=== PATIENT | female | born 1975 | race Two or more races ===

== ENCOUNTER → 2024-06-28 | Outpatient (CLI) | payer MEDICAID, SELFPAY ==
--- NOTE | 2024-06-28 12:20 | XR_ITS ---
Examination: Bone densitometry Date and time of exam:June 28, 2024 1245 hours INDICATIONS: Uterine ablation age 38 Technique: Lumbar spine and hip total bone mineralization values of an calculated. Peak reference and age match control results have been displayed. Findings: Lumbar spine total bone mineralization is1.174 gm/cm2. This is 1.2 standard deviations above peak reference. This is 1.9 standard deviations above age-matched controls. Hip total bone mineralization is 1.113 gm/cm2 This is 1.1 standard deviations above peak reference. This is 1.6 standard deviations above age-matched controls Impression: There is normal mineralization based on lumbar spine measurements. There is normal mineralization based on hip measurements
== END | disposition home or self-care (01) ==
PROVIDERS: PCP Nurse Practitioner Family; Referring Provider Nurse Practitioner Family; Visit Provider Nurse Practitioner Family
DX: M85.80 Other specified disorders of bone density and structure, unspecified site (principal)
CPT/HCPCS: 77080

== ENCOUNTER → 2024-08-03 | Outpatient (CLI) | payer MEDICAID, SELFPAY | END | disposition home or self-care (01) | LOC: SMRI 07:33 | PROVIDERS: PCP Nurse Practitioner Family; Referring Provider Otolaryngology; Visit Provider Otolaryngology | DX: Z53.8 Procedure and treatment not carried out for other reasons (principal) ==

== ENCOUNTER → 2024-09-04 | Outpatient (CLI) | payer MEDICAID, SELFPAY ==
--- NOTE | 2024-09-04 16:12 | XR_ITS ---
Examination: MRI right foot, without contrast Date and time of exam: September 04, 2024 1620 hours INDICATIONS: Numbness in the toes on the plantar surface of the second toe and pain beginning 3 years ago Technique: Multiple axial sagittal and coronal images of the right weight have been obtained with the Siemens high-resolution 1.5 Teresa MRI scanner. Images obtained include T2-weighted fat-suppressed sagittal sections, TR 3500, TE 46, T2 weighted coronal fat suppressed images, TR 3050, TE 84, T2-weighted transverse fat suppressed images, TR 3260, TE 63, proton density transverse images, TR 4720 TE 46, and T1 weighted coronal images, TR 560, TE 13. Findings: No occult fracture Or definition of the cortex distal second metatarsal Extensive abnormal soft tissue signal surrounding the distal second metatarsal especially the second metatarsal head and neck Marrow edema in the second metatarsal neck No foreign body IMPRESSION: Extensive abnormal soft tissue surrounding the distal second metatarsal with early cortical erosion distal second metatarsal Differential would include soft tissue tumor at this site as well as osteomyelitis This patient should return for MRI foot images post intravenous contrast
== END | disposition home or self-care (01) ==
LOC: SMRI 16:01
PROVIDERS: PCP Nurse Practitioner Family; Referring Provider Student in an Organized Health Care Education/Training Program; Visit Provider Student in an Organized Health Care Education/Training Program
DX: M77.50 Other enthesopathy of unspecified foot and ankle (principal)
CPT/HCPCS: 73718

== ENCOUNTER → 2024-10-17 | Outpatient (CLI) | payer MEDICAID, SELFPAY ==
--- NOTE | 2024-10-17 17:11 | XR_ITS ---
Examination: Foot, right, 3 views Technique: AP, oblique, lateral views foot, 3 views Date and time of exam: October 17, 2024 1715 hours INDICATIONS: Right foot pain beginning 2 years ago. FINDINGS: Chronic mild subluxation at the second metatarsophalangeal joint Moderate osteoarthritis first metatarsophalangeal joint Minimal bunion deformity No acute fracture 6 mm plantar bony calcaneal spur Mild osteoarthritis talonavicular joint IMPRESSION: Osteoarthritis as above Mild chronic subluxation at the second metatarsophalangeal joint
== END | disposition home or self-care (01) ==
PROVIDERS: PCP Nurse Practitioner Family; Referring Provider Student in an Organized Health Care Education/Training Program; Visit Provider Student in an Organized Health Care Education/Training Program
DX: M24.474 Recurrent dislocation, right foot (principal)
CPT/HCPCS: 73630

== ENCOUNTER 2025-03-25 06:55 | Inpatient (IN) | payer MEDICAID, SELFPAY ==
[2025-03-25 06:56] VITALS: BP 102/71; PULSE 114; RESP 18; TEMP 37.9; O2SAT 98; BMI 27.2
--- NOTE | 2025-03-25 07:09 | XR_ITS ---
Examination: CT abdomen and pelvis without contrast. Coronal 3-D reconstructions. Sagittal 2-D reconstructions. Date and time of exam:March 25, 2025, 1006 hours COMPARISON: May 07, 2016 INDICATIONS: Left-sided abdominal pain with nausea beginning 2 days ago CTDI: vol (mGy): 6.55 DLP: (mGycm): 355 Technique: Axial images of the abdomen have been obtained, 3 mm slice thickness Intravenous contrast material has not been administered. Low dose protocols were performed. One or more of the following dose reduction techniques were used; automated exposure control, adjustment of the mA and/or KV according to patient size, use of iterative reconstruction technique. Findings: Significant adenopathy adjacent to the descending thoracic aorta, the largest mass at least 25 mm No visualized liver or splenic lesion No gallstones No pancreatic mass Minimal nodular thickening left adrenal gland Suspicious for 12 mm left lateral periaortic lymph node No hydronephrosis No bowel obstruction Normal appendix Colonic diverticulosis Acute diverticulitis descending colon distally, no peridiverticular abscess Urinary bladder wall thickening up to 10 mm IMPRESSION: Significant adenopathy adjacent to the descending thoracic aorta, recommend CT chest abdomen pelvis post intravenous contrast follow-up Suspicious for 12 mm left lateral periaortic lymph node Acute diverticulitis descending colon distally, no peridiverticular abscess Urinary bladder wall thickening
--- NOTE | 2025-03-25 07:11 | EDNOTE_ITS ---
ED Abdominal Pain RME/HPI General Chief Complaint: Abdominal Pain Stated complaint: L SIDED ABD PAIN Time seen by provider: 03/25/25 07:00 Arrival date/time: 03/25/25 06:55 49-year-old female with no known medical history presents to the emergency room with a chief complaint of left lower quadrant abdominal pain x 2 days Source: patient Mode of arrival: ambulatory Limitations: no limitations Related Data Home Medications ?Medication ?Instructions ?Recorded ?Confirmed benzonatate 100 mg capsule 100 mg PO QDAY 04/12/24 cetirizine 10 mg tablet 10 mg PO QDAY 04/12/2404/12 spironolactone 50 mg tablet 50 mg PO QDAY 04/12/24 Allergies Allergy/AdvReac Type Severity Reaction Status Date / Time Influenza Virus Vaccines Allergy Intermediate Rash Verified 03/25/25 07:02 Review of Systems Review of Systems Systems Reviewed: All systems reviewed, normal except as documented Constitutional Constitutional: Reports system reviewed and no additional complaints, except as documented, Denies fatigue, Denies fever(s), Denies headache(s) and Denies weakness Eyes Eyes: Reports system reviewed and no additional complaints, except as docu mented, Denies blurry vision and Denies change in vision ENT Ears, Nose, Mouth, and Throat: Reports system reviewed and no additional complaints, except as documented, Denies otalgia, Denies headache(s), Denies nasal congestion, Denies throat swelling and Denies vertigo Cardiovascular Cardiovascular: Reports system reviewed and no additional complaints, except as documented, Denies chest pain, Denies dyspnea and Denies dyspnea on exertion Respiratory Respiratory: Reports system reviewed and no additional complaints, except as documented, Denies chest congestion, Denies cough, Denies dyspnea, Denies dyspnea on exertion and Denies wheezing Gastrointestinal Gastrointestinal: Reports system reviewed and no additional complaints, except as documented, Reports abdominal pain, Reports cramping, Reports nausea and Denies vomiting Genitourinary Genitourinary: Reports system reviewed and no additional complaints, except as documented Musculoskeletal Musculoskeletal: Reports system reviewed and no additional complaints, except as documented and Denies back pain Integumentary/Breasts Skin/Breast: Reports system reviewed and no additional complaints, except as documented and Denies wounds Neurologic Neurologic: Reports system reviewed and no additional complaints, except as documented, Denies confusion, Denies headache(s), Denies lack of coordination, Denies vertigo and Denies weakness Psychiatric Psychiatric: Reports system reviewed and no additional complaints, except as documented, Denies anxiety, Denies confusion, Denies depression, Denies pa ranoia, Denies suicidal ideation and Denies tactile hallucinations Endocrine Endocrine: Reports system reviewed and no additional complaints, except as documented and Denies fatigue Hematologic/Lymphatic Hematologic/Lymphatic: Reports system reviewed and no additional complaints, except as documented and Denies lymphadenopathy Allergic/Immunologic Allergic/Immunologic: Reports system reviewed and no additional complaints, except as documented, Denies throat swelling, Denies urticaria and Denies wheezing Past Medical History Past Medical History NEUROLOGIC: Negative Neurological Disorders or Seizures CARDIAC: Negative Cardiac Disorders or Congestive Heart Failure RESPIRATORY: Positive Tuberculosis (LATENT); Negative Chronic Obstructive Pulmonary Disease (COPD) GASTROINTESTINAL: Negative Gastrointestinal Disorders, Hepatitis or Colorectal Cancer GENITOURINARY: Negative Genitourinary Disorders, Renal Disease or Prostate Cancer REPRODUCTIVE: Positive Previous Pregnancies (); Negative Breast Cancer, Endometriosis, Genital Herpes, Gonorrhea, Pelvic Inflammatory Disease or Syphilis MUSCULOSKELETAL: Negative Musculoskeletal Disorders or Bone Cancer ENDOCRINE: Negative Endocrine Disorders, Diabetes Mellitus Type 1 or Diabetes Mellitus Type 2 HEMATOLOGIC: Negative Blood Disorders OTHER HISTORY: Negative Hospitalization, Autoimmune Disease, Down Syndrome, Developmental Delay, Shingles, Falls, Blood Transfusions, Anesthesia Reactions, Organ Transplant, Chemotherapy, Radiation Therapy, Hyperbaric Therapy, MRSA, VRSA, Vancomycin-Resistant Enterococci, Human Immunodeficiency Virus (HIV), Chicken Pox, Measles, Mumps, Rubella (Danish Measles), Pertussis, Clostridium Difficile, Cancer, Breast Cancer, Cervical Cancer, Colorectal Cancer, Lung Cancer, Ovarian Cancer or Prostate Cancer Family History FAMILY HISTORY: Negative Family Cardiac Disorders Surgical History SURGICAL: Positive Tubal Ligation and Section (X2); Negative Ear Surgery or Organ Transplant Social History SMOKING STATUS: Never smoker ED Exam General Limitations: Present no limitations General appearance: Present alert and in no apparent distress Head Head exam: Present atraumatic Eye Eye exam: Present normal appearance, PERRL and EOMI ENT ENT exam: Present normal exam, normal oropharynx and mucous membranes moist Neck Neck exam: Present normal inspection, full ROM and trachea midline Chest Chest inspection: Present normal inspection and symmetric chest wall rise Respiratory Respiratory exam: Present normal lung sounds bilaterally Cardiovascular Cardiovascular exam: Present regular rate, normal rhythm and normal heart sounds Abdominal Exam Abdominal exam: Present soft, tenderness and normal bowel sounds; Absent distention, guarding, rebound, rigidity, Rubi's sign or tenderness at McBurney's Point Abdominal tenderness: Present LLQ and mild Extremities Exam Extremities exam: Present normal inspection and full ROM Back Exam Back exam: Present normal inspection and full ROM Neurological Exam Neurological exam: Present alert, oriented X3 and CN II-XII intact Psychiatric Psychiatric exam: Present normal affect and normal mood Skin Skin exam: Present warm, dry, intact and normal color Course Quality Measures none Orders Category Date Time Status Admit to Inpatient Status Routine Admission 03/25/25 11:53 Active Patient Condition Routine Admission 03/25/25 11:53 Ordered Ambulate in Room PRN Care 03/25/25 12:05 Active COVID-19 Screening Questionnaire NOW Care 03/25/25 11:54 Active Decision to Admit X1 Care 03/25/25 11:53 Active Insert IV STAT Care 03/25/25 11:53 Active NPO NOW Care 03/25/25 11:54 Active Notify provider NEEDED Care 03/25/25 11:53 Active SCD [Sequential Compression Device] QSHIFT Care 03/25/25 12:02 Active Safe to Ambulate NOW Care 03/25/25 12:15 Ordered Consult to Gastroenterology Stat Cons 03/25/25 11:[address] abdomen pelvis wo con Stat Exams 03/25/25 07:09 Completed Basic Metabolic Panel AM DRAW Lab 03/26/25 05:00 Ordered Basic Metabolic Panel AM DRAW Lab 03/27/25 05:00 Ordered Basic Metabolic Panel AM DRAW Lab 03/28/25 05:00 Ordered Blood Culture (Lab) Routine Lab 03/25/25 11:58 Ordered CBC AM DRAW Lab 03/26/25 05:00 Ordered CBC AM DRAW Lab 03/27/25 05:00 Ordered CBC AM DRAW Lab 03/28/25 05:00 Ordered CBC Stat Lab 03/25/25 07:15 Completed CMP [Comprehensive Metabolic Panel] Stat Lab 03/25/25 07:15 Completed HCG Qualitative,Urine Stat Lab 03/25/25 07:31 Completed Lipase Stat Lab 03/25/25 07:15 Completed Lipid Panel AM DRAW Lab 03/26/25 05:00 Ordered Magnesium AM DRAW Lab 03/26/25 05:00 Ordered Phosphorous AM DRAW Lab 03/26/25 05:00 Ordered Thyroid Stimulating Hormone AM DRAW Lab 03/26/25 05:00 Ordered UA [Urinalysis] Stat Lab 03/25/25 07:31 Completed Urine Culture Stat Lab 03/25/25 07:31 Received Acetaminophen Tab [Tylenol ES Tab] Med 03/25/25 12:04 Active 1,000 mg PO Q6H PRN Acetaminophen Tab [Tylenol Tab] Med 03/25/25 11:52 Discontinued 650 mg PO Q6H PRN CIPROFLOXACIN/D5w 400 MG IVPB [Cipro Ivpb] Med 03/25/25 12:00 Active 400 mg in 200 ml IV BID Enoxaparin [Lovenox] Med 03/25/25 12:00 Discontinued 40 mg SC QDAY HYDROcodone*/APAP 5/325 [[place] 5/325] Med 03/25/25 11:52 Active 1 tab PO Q6HR PRN Hyoscyamine Sulf [Levsin] Med 03/25/25 14:00 Active 0.25 mg PO Q4HR Lactobacillus Rhamnosus [Culturelle (Lactobacillus Gg)] Med 03/25/25 12:15 Active 1 cap PO BID Morphine* Inj Med 03/25/25 12:03 Active 2 mg IVP Q4HR PRN Ondansetron Inj [Zofran Inj] Med 03/25/25 11:52 Active 4 mg IVP Q6H PRN Pantoprazole Inj [Protonix Inj] Med 03/25/25 12:15 Active 40 mg IVP QDAY metroNIDAZOLE/NS 500 MG IVPB [Flagyl 500 mg IV] Med 03/25/25 11:54 Active 500 mg in 100 ml IV Q8HR Late Tray Request Routine Oth 03/25/25 12:04 Active Vital Signs Vital signs: Vital Signs Temperature 100.2 F 03/25/25 06:56 Pulse Rate 114 H 03/25/25 06:56 Respiratory Rate 18 03/25/25 06:56 Blood Pressure 102/71 03/25/25 06:56 Pulse Oximetry (%) 98 03/25/25 06:56 Oxygen Delivery Method Room Air 03/25/25 06:56 Abdominal Pain MDM MDM Narrative MDM Narrative:: 49-year-old female with no known medical history presents to the emergency room with a chief complaint of left lower quadrant abdominal pain x 2 days Patient is hemodynamically stable and in no apparent distress. Patient is not tachycardic not tachypneic and is afebrile Physical examination shows left lower quadrant abdominal pain and tenderness with palpation. The patient states she has a history of diverticulitis in the past and her symptoms feel similar to the same episode. A CT of the abdomen and pelvis was completed and shows significant acute diverticulitis in the descending colon. There is also some significant adenopathy adjacent to the descending thoracic aorta. Dr. Bell the data quality consultant on-call was consulted and his recommendation was to admit the patient for IV antibiotics. All of his orders were appreciated and placed. The hospitalist team was consulted and the patient will be admitted. Patient data External records reviewed:: [facility] previous records Clinical information provided by:: patient Social determinants that could affect healthcare access:: none Patient has the following chronic illnesses:: No chronic illness How is presenting disease/condition affected by chronic disease/condition?: no chronic disease Evaluation data The following diagnostics were reviewed and interpreted by me:: lab results and radiology exam(s) Lab and/or radiology exams considered but not ordered:: Labs and radiology exams considered and ordered Interpretation Summary: CT abdomen and pelvis-Findings: Significant adenopathy adjacent to the descending thoracic aorta, the largest mass at least 25 mm No visualized liver or splenic lesion No gallstones No pancreatic mass Minimal nodular thickening left adrenal gland Suspicious for 12 mm left lateral periaortic lymph node No hydronephrosis No bowel obstruction Normal appendix Colonic diverticulosis Acute diverticulitis descending colon distally, no peridiverticular abscess Urinary bladder wall thickening up to 10 mm IMPRESSION: Significant adenopathy adjacent to the descending thoracic aorta, recommend CT chest abdomen pelvis post intravenous contrast follow-up Suspicious for 12 mm left lateral periaortic lymph node Acute diverticulitis descending colon distally, no peridiverticular abscess Urinary bladder wall thickening Medications / Prescriptions Medications or Prescriptions considered but not ordered:: No medication given Medication administrations:: Medication Administration History Acetaminophen (Acetaminophen 500 Mg Tablet) 1,000 mg PO Q6H PRN PRN Reason: fever >99.9 Stop: 04/24/25 11:51 Hydrocodone Bitart/Acetaminophen (Hydrocodone/Apap 5/325 Tablet) 1 tab PO Q6HR PRN PRN Reason: PAIN SCALE 4-6 (Moderate Stop: 03/30/25 11:51 Hyoscyamine (Hyoscyamine Sulf 0.125 Mg Tab.Subl) 0.25 mg PO Q4HR [place] Stop: 04/24/25 13:59 Metronidazole (Flagyl 500 Mg Iv) 500 mg in 100 mls @ 200 mls/hr IV Q8HR [facility] [place] Stop: 04/01/25 11:53 Ciprofloxacin/Dextrose (Cipro Ivpb) 400 mg in 200 mls @ 200 mls/hr IV BID [facility] [place] Stop: 04/01/25 11:59 Lactobacillus Rhamnosus (Lactobacillus Rhamnosus 1 Cap) 1 cap PO BID [facility] [place] Stop: 04/24/25 12:14 Morphine Sulfate (Morphine Sulf Inj 4 Mg/Ml Vial) 2 mg IVP Q4HR PRN PRN Reason: pain 7-10 Stop: 03/30/25 12:02 Ondansetron HCl (Ondansetron Inj 2 Mg/Ml Inj 2 Ml) 4 mg IVP Q6H PRN; Protocol PRN Reason: NAUSEA OR VOMITING Stop: 04/24/25 11:51 Pantoprazole Sodium (Pantoprazole Inj 40 Mg Vial) 40 mg IVP QDAY [facility] [place] Stop: 04/24/25 12:14 Discontinued Medications Acetaminophen (Acetaminophen 325 Mg Tablet) 650 mg PO Q6H PRN PRN Reason: PAIN OR FEVER > 100.4 Stop: 04/24/25 11:51 Enoxaparin Sodium (Enoxaparin Sod Inj 40 Mg/0.4 Ml Syringe) 40 mg SC QDAY [facility] [place] Stop: 04/08/25 11:59 No medication given Consultations Consultation(s) initiated? (list below): Yes Consultation #1 (Physician, Specialty, Details): Dr. Bell, data quality consultant on-call Time: 12:19 Diagnosis Differential diagnosis abdominal pain: abdominal pain, constipation, diverticulitis and gastroenteritis Most likely diagnosis given after review of the tests above:: Diverticulitis Admission Indicated Admission indicated?: indicated Admission Request Was there a request for admission?: Yes Admission Attestation Admission request attestation: Discussed case with [Dr. Bell] from Hospitalist service regarding admission. Discussed patients ED course, exam findings, labs, and radiology results. The H ospitalist [agrees,declines] to accept the patient for admission. Disposition Plan Disposition Plan: Discharge Discharge Attestation Discharge Attestation: The patient and all family members were given an opportunity to ask questions and understood the discharge instructions. Discharge instructions specifically effects, indications for sooner follow up or return to the emergency department, and the expected course of current diagnosis. Patient condition: Stable Discharge Plan Plan Patient Disposition: Admit Acute Care w/in Hospital Discharge Disposition comment: Stable Prescriptions/Referrals Prescriptions/Med Rec: No Action cetirizine 10 mg tablet 10 mg PO QDAY benzonatate 100 mg capsule 100 mg PO QDAY Patient Comments: TAKE 1 CAPSULE BY MOUTH THREE TIMES A DAY NEEDED FOR COUGH spironolactone 50 mg tablet 50 mg PO QDAY Patient Comments: TAKE 1 TABLET BY MOUTH FOR THE LAST AND FIRST WEEK OF THE MONTH DIRECTED Referrals: Nile BELL)Edson MD [Primary Care Provider] - In 1 week Problem List Clinical Impression: Diverticulitis Patient/Caregiver Discharge Instructions Print Language: Libyan Stand Alone Forms: Danae Award Info., Patient Portal Info Letter
[2025-03-25 07:43] LABS: Basophils # (Auto) 0.1 Thou/mm3 (0.0-0.2); Basophils % (Auto) 0 % (0-2.5); Eosinophils # (Auto) 0.1 Thou/mm3 (0.0-0.5); Eosinophils % (Auto) 1 % (0-10); Hematocrit 41.4 % (36.0-46.0); Hemoglobin 14.1 g/dL (12.0-16.0); Immature Granulocytes Auto 0.05 Thou/mm3 (0.00-0.00); Lymphocytes # (Auto) 1.0 Thou/mm3 (1.0-4.8); Lymphocytes % (Auto) 8 % (10-50); Mean Corpuscular HGB Conc 34.1 g/dl (31.0-37.0); Mean Corpuscular Hemoglobin 29.7 pg (25.0-35.0); Mean Corpuscular Volume 87 fL (80-100); Monocytes # (Auto) 0.8 Thou/mm3 (0.0-0.8); Monocytes % (Auto) 7 % (0-12); Neutrophils # (Auto) 10.4 Thou/mm3 (1.8-7.7); Neutrophils % (Auto) 84 % (37-80); Nucleated Red Blood Cell # 0.00 Thou/mm3 (0.00-0.00); Nucleated Red Blood Cell % 0 /100 WBC (0); Platelet Count 263 Thou/mm3 (140-440); RDW Standard Deviation 41.2 fL (36.4-46.3); Red Blood Count 4.75 Miln/mm3 (4.00-5.20); White Blood Count 12.4 Thou/mm3 (3.6-11.0)
[2025-03-25 07:51] LABS: Alanine Aminotransferase 37 U/L (10-49); Albumin, Serum 4.2 gm/dL (3.5-5.0); Albumin/Globulin Ratio 1.4 (1.2-2.2); Alkaline Phosphatase 74 U/L (46-116); Anion Gap 12 (7-16); Aspartate Amino Transferase 32 U/L (0-34); BUN/Creatinine Ratio 13 Ratio (12-20); Bilirubin,Total 0.8 mg/dL (0.3-1.2); Blood Urea Nitrogen 9 mg/dL (9-23); Calcium 9.6 mg/dL (8.3-10.6); Calcium (Corrected) 9.6 mg/dL (8.5-10.1); Carbon Dioxide 27.5 mMol/L (20.0-31.0); Chloride 102 mMol/L (98-107); Creatinine (Component) 0.7 mg/dL (0.6-1.3); Estimated Creatinine Clearance 75.7 mL/min (>60); Globulin 3.0 gm/dL (2.3-3.5); Glucose 159 mg/dL (74-106); Lipase 29 U/L (12-53); Osmolality,Calculated 282 (275-295); Potassium 3.5 mMol/L (3.4-5.1); Sodium 141 mMol/L (136-145); Total Protein 7.2 gm/dL (5.7-8.2); eGFR > 60 See Note
[2025-03-25 08:18] LABS: Collection Type, Urine Clean Catch
[2025-03-25 08:28] LABS: HCG Qualitative,Urine Negative
[2025-03-25 08:31] LABS: Bilirubin,Urine Negative (Negative); Blood,Urine Trace (Negative); Clarity,Urine Clear (Clear/Hazy); Color,Urine Yellow (Lt Yel-Yel); Glucose, Urine Negative (Negative); Ketones,Urine Negative (Negative); Leukocyte Esterase,Urine Positive (Negative); Nitrite,Urine Negative (Negative); PH,Urine 6.0 (5.0-7.0); Protein,Urine 1+ (Neg - Trace); RBC,Urine 4 /hpf (0-3); Specific Gravity,Urine 1.027 (1.001-1.035); Squamous Epithelial Cell,Urine 6 /hpf (0-5); Urobilinogen,Urine Negative mg/dL (0.0-1.0); WBC,Urine 9 /hpf (0-5)
[2025-03-25 08:58] VITALS: BP 104/61; PULSE 81; RESP 18; O2SAT 98
[2025-03-25 10:48] VITALS: BP 101/61; PULSE 75; RESP 19; TEMP 36.9; O2SAT 98
--- NOTE | 2025-03-25 12:13 | ESHP_ITS ---
<Statement entered by Jose Alfredo Pereira MD - 04/07/25 09:06> I reviewed above note and agree with findings and plans. I have also personally examined the patient with medicine team and went over assessment and plan with medical team including technology internship and resident physician. <Statement entered by Gordon Katz MD - 03/25/25 19:48> Jana Marin is a 49-year-old female with no previous past medical history who presents with acute onset left lower quadrant abdominal pain. States pain started day prior to admission, was acute in onset, not associated with eating. No associated fevers, chills, sweats, diarrhea, constipation, hematochezia, melena. States that this has happened many years ago. In ED, tachycardic at 114 but resolved and otherwise vital signs stable. CBC showed slight leukocytosis 12.4, CHEM panel largely unremarkable. CT A/P showed acute diverticulitis of descending colon but also showed significant periaortic adenopathy with suspicious 12 mm left lateral periaortic lymph node. She was started on ciprofloxacin/Flagyl, GI consulted, and will follow-up with blood cultures. ----- Note reviewed and agree with care plan as documented. Please refer to the note below for further details. Plan discussed with attending physician Dr. Kelli Katz MD PGY-2 Internal Medicine Documentation for date of: 03/25/25 HPI History of Present Illness History of present illness: HPI: 49-year-old female with no past medical history presented to the ED on 03/25/2025 after a day of intense left lower quadrant pain. It is not radiating. The patient took some ibuprofen which helped a little but she was unable to turn over in bed prompting her to visit the emergency room. She was admitted by the hospital team for acute diverticulitis. ED course: * Vitals: On arrival blood pressure 102/71, pulse 114, respiratory rate 18, temp 100.2, O2 sat 98% on room air. * Labs: Significant for WBC 12.4. Sodium 141, potassium 3.5, chloride 102, carbon dioxide 27.5, anion gap 12, BUN 9, creatinine 0.7. Urinalysis was positive for 1+ protein, 4 RBC, 9 WBC, negative for bacteria * Imaging: CT abdomen pelvis showed significant adenopathy adjacent to the descending thoracic aorta. Suspicion for 12 mm left lateral periaortic lymph node. There was acute diverticulitis in the descending colon distally, no peridiverticular abscess. There was urinary bladder wall thickening History: * Past medical history: No significant past medical history * Surgical history: Tubal ligation, 2 C-sections * Family history: No significant family history * Social history: Denies alcohol tobacco or illicit drug use. * Allergies: Influenza virus vaccine * Home medications: Multivitamin, Advil as needed for pain Review of Systems Review of Systems Narrative Review of Systems: Review of Systems: * General: Admits to having chills the night before presentation. * HEENT: Denies headache, congestion, or sore throat. * Cardiac: Denies chest pain or palpitations. * Pulmonary: Denies shortness of breath or cough. * GI: 1 day history of severe left lower quadrant pain. Admits to nausea, denies vomiting, denies diarrhea. * : Denies dysuria, hematuria, frequency, or urgency. * MSK: Denies pain in the extremities, joints, or myalgias. * Neuro: Denies weakness, numbness, vision changes, or speech difficulty. Exam Vital Signs Temp Pulse Resp BP Pulse Ox O2 Del Method 98.5 F 75 19 101/61 98 Room Air 03/25/25 10:48 03/25/25 10:48 03/25/25 10:48 03/25/25 10:48 03/25/25 10:48 03/25/25 10:48 Narrative Exam General: Uncomfortable, abdominal guarding. Otherwise healthy appearing woman. Neurologic: GCS 15. Alert and oriented x3, no gross neurological deficit, and patient able to move all 4 extremities. HEENT: Normocephalic, atraumatic, mucous membranes moist. Pupils reactive to light. Heart: Regular rate and rhythm, normal S1 and S2, no murmurs. Lungs: Clear to auscultation bilaterally with no wheezing or crackles. Abdomen: Tender to superficial palpation over the left lower quadrant. Extremities: No edema. 2+ radial and dorsalis pedis pulses bilaterally. Skin: Warm. Dry. No rash or ecchymoses. Results: Labs 03/25/25 07:15 03/25/25 07:15 Labs: Short CBC 03/25/25 Range/Units 07:15 WBC 12.4 H (3.6-11.0) Thou/mm3 Hgb 14.1 (12.0-16.0) g/dL Hct 41.4 (36.0-46.0) % Plt Count 263 (140-440) Thou/mm3 BMP 03/25/25 07:15 Sodium 141 Potassium 3.5 Chloride 102 Carbon Dioxide 27.5 BUN 9 Creatinine 0.7 Glucose 159 H Calcium 9.6 Liver Function 03/25/25 Range/Units 07:15 Total Bilirubin 0.8 (0.3-1.2) mg/dL AST 32 (0-34) U/L ALT 37 (10-49) U/L Alkaline Phosphatase 74 (46-116) U/L Albumin 4.2 (3.5-5.0) gm/dL Urine 03/25/25 Range/Units 07:31 Urine Color Yellow (Lt Yel-Yel) Urine Clarity Clear (Clear/Hazy) Urine pH 6.0 (5.0-7.0) Ur Specific [place] 1.027 (1.001-1.035) Urine Protein 1+ A (Neg - Trace) Urine Glucose (UA) Negative (Negative) Quality Measures Quality Measures none Medications Home Medications and Allergies Allergies Allergy/AdvReac Type Severity Reaction Status Date / Time Influenza Virus Vaccines Allergy Intermediate Rash Verified 03/25/25 07:02 Visit Medications Acetaminophen (Acetaminophen 500 Mg Tablet) 1,000 mg PO Q6H PRN PRN Reason: fever >99.9 Stop: 04/24/25 11:51 Hydrocodone Bitart/Acetaminophen (Hydrocodone/Apap 5/325 Tablet) 1 tab PO Q6HR PRN PRN Reason: PAIN SCALE 4-6 (Moderate Stop: 03/30/25 11:51 Hyoscyamine (Hyoscyamine Sulf 0.125 Mg Tab.Subl) 0.25 mg PO Q4HR [facility] Stop: 04/24/25 13:59 Metronidazole (Flagyl 500 Mg Iv) 500 mg in 100 mls @ 200 mls/hr IV Q8HR [facility] Stop: 04/01/25 11:53 Ciprofloxacin/Dextrose (Cipro Ivpb) 400 mg in 200 mls @ 200 mls/hr IV BID [facility] Stop: 04/01/25 11:59 Lactobacillus Rhamnosus (Lactobacillus Rhamnosus 1 Cap) 1 cap PO BID [facility] Stop: 04/24/25 12:14 Morphine Sulfate (Morphine Sulf Inj 4 Mg/Ml Vial) 2 mg IVP Q4HR PRN PRN Reason: pain 7-10 Stop: 03/30/25 12:02 Ondansetron HCl (Ondansetron Inj 2 Mg/Ml Inj 2 Ml) 4 mg IVP Q6H PRN; Protocol PRN Reason: NAUSEA OR VOMITING Stop: 04/24/25 11:51 Pantoprazole Sodium (Pantoprazole Inj 40 Mg Vial) 40 mg IVP QDAY [facility] Stop: 04/24/25 12:14 Discontinued Medications Acetaminophen (Acetaminophen 325 Mg Tablet) 650 mg PO Q6H PRN PRN Reason: PAIN OR FEVER > 100.4 Stop: 04/24/25 11:51 Enoxaparin Sodium (Enoxaparin Sod Inj 40 Mg/0.4 Ml Syringe) 40 mg SC QDAY [facility] Stop: 04/08/25 11:59 Assessment & Plan Plan 49-year-old woman with no significant past medical history who presented to the ED after a day history of severe left lower quadrant pain. CT was positive for diverticulitis. She was admitted to the hospital for inpatient treatment with antibiotics for her acute diverticulitis. #Acute diverticulitis #Leukocytosis #Fever * CT showed acute diverticulitis in the descending colon distally * Patient had an elevated white count on arrival of 12.4 * She had a temperature of 100.2 on arrival and endorsed chills the day before presentation * She has tenderness to superficial palpation of the left lower quadrant Plan: * Started on IV ciprofloxacin 400 mg IV twice daily on 03/25/2025 * Started on metronidazole 500 mg every 8 hours on 03/25/2025 * Hyoscyamine, acetaminophen, hydrocodone, and morphine as needed for pain, latter 3 medications for sliding scale * Ondansetron 4 mg every 6 hours as needed for nausea * GI on board * Pending urine and blood culture * Trend WBC and temperature #Periaortic lymphadenopathy #Bladder wall thickening * Both incidental findings on CT abdomen pelvis * CT showed evidence of 12 mm left lateral periaortic lymph node * CT showed evidence of urinary bladder wall thickening up to 10 mm Plan: * Recommend outpatient follow-up with follow-up CT abdomen pelvis with contrast Hospital Maintenance: DVT ppx: SCDs GI ppx: Pantoprazole 40 mg IV daily Diet: MAG diet IV lines: Peripheral IV Code status: Full code Dispo: Admitted for treatment of acute diverticulitis, GI on board. Patient was seen and discussed with my attending physician Dr. Kelli BEAVER and my senior resident Dr. Sterling BEAVER PGY-2. Odin Gilbert DO PGY-1.
[2025-03-25] MEDS: metroNIDAZOLE/NS 500 MG IVPB 500 MG/100 ML BAG 200 MG IV ×2 (12:40→22:16)
[2025-03-25] MEDS: CIPROFLOXACIN/D5w 400 MG IVPB 400 MG/200 ML BAG 200 MG IV ×2 (12:40→21:06)
[2025-03-25] MEDS: LACTOBACILLUS RHAMNOSUS 1 CAP PO ×2 (13:03→21:06)
[2025-03-25 13:05] VITALS: BP 113/63; PULSE 94; RESP 14; O2SAT 98
[2025-03-25] MEDS: HYOSCYAMINE SULF 0.125 MG TAB.SUBL 0.25 MG PO ×2 (14:16→21:06)
--- NOTE | 2025-03-25 15:02 | ESCONSULT_ITS ---
HPI Data of Consult Requesting Physician: Jose Alfredo Pereira MD Admitting Provider: Jose Alfredo Pereira MD Attending Provider: Jose Alfredo Pereira MD Primary Care Provider: Edson Dowd MD Consult Narrative Reason for consult: acute diverticulitis History of present illness: 49-year-old female with remote history of diverticulitis (~9?10 years ago) presents with 2 days of acute left lower quadrant abdominal pain, sharp in nature, associated with chills/hot?cold sensations and dry mouth. No nausea, vomiting, diarrhea, constipation, hematochezia, melena, or urinary symptoms. Last BM Monday, normal. Denies weight loss, recent antibiotic use, or recent hospitalizations. Colonoscopy performed 04/12/[address] Villasenor showed non- bleeding internal hemorrhoids and diverticulosis throughout the colon without evidence of bleeding or neoplasia. No prior abdominal resections. ROS: * Constitutional: +hot/cold chills; no fevers, no weight loss. * GI: LLQ pain; no diarrhea, constipation, hematochezia, melena, nausea, or vomiting. * : denies dysuria, hematuria. PMH: Remote diverticulitis. Otherwise none reported. PSH: C-sections ?2, tubal ligation. Medications: None at home. Allergies: None reported. Family Hx: Not elicited. Social Hx: No tobacco, alcohol, or recreational drug use. Traveled to [place] 2 weeks ago. Past GI History: Colonoscopy 04/12/24 (Dr. Villasenor): internal hemorrhoids, diverticulosis in sigmoid/descending/transverse/hepatic flexure/ascending colon. No bleeding, no polyps, no masses. Recommended high fiber diet, repeat in 10 years. cc:: cc: Jose Alfredo Pereira MD Exam Vital Signs Temp Pulse Resp BP Pulse Ox O2 Del Method 98.5 F 94 14 113/63 98 Room Air 03/25/25 10:48 03/25/25 13:05 03/25/25 13:05 03/25/25 13:05 03/25/25 13:05 03/25/25 10:48 Narrative Exam General: NAD, alert, oriented. Abdomen: LLQ tenderness to palpation, no rebound/guarding reported. No distension noted. Other systems unremarkable. Results Labs 03/25/25 07:15 03/25/25 07:15 Labs: Short CBC 03/25/25 Range/Units 07:15 WBC 12.4 H (3.6-11.0) Thou/mm3 Hgb 14.1 (12.0-16.0) g/dL Hct 41.4 (36.0-46.0) % Plt Count 263 (140-440) Thou/mm3 BMP 03/25/25 07:15 Sodium 141 Potassium 3.5 Chloride 102 Carbon Dioxide 27.5 BUN 9 Creatinine 0.7 Glucose 159 H Calcium 9.6 Liver Function 03/25/25 Range/Units 07:15 Total Bilirubin 0.8 (0.3-1.2) mg/dL AST 32 (0-34) U/L ALT 37 (10-49) U/L Alkaline Phosphatase 74 (46-116) U/L Albumin 4.2 (3.5-5.0) gm/dL Urine 03/25/25 Range/Units 07:31 Urine Color Yellow (Lt Yel-Yel) Urine Clarity Clear (Clear/Hazy) Urine pH 6.0 (5.0-7.0) Ur Specific [place] 1.027 (1.001-1.035) Urine Protein 1+ A (Neg - Trace) Urine Glucose (UA) Negative (Negative) Quality Measures Quality Measures VTE prophylaxis Medications Home Medications and Allergies Allergies Allergy/AdvReac Type Severity Reaction Status Date / Time Influenza Virus Vaccines Allergy Intermediate Rash Verified 03/25/25 07:02 Visit Medications Acetaminophen (Acetaminophen 500 Mg Tablet) 1,000 mg PO Q6H PRN PRN Reason: fever >99.9 Stop: 04/24/25 11:51 Hydrocodone Bitart/Acetaminophen (Hydrocodone/Apap 5/325 Tablet) 1 tab PO Q6HR PRN PRN Reason: PAIN SCALE 4-6 (Moderate Stop: 03/30/25 11:51 Hyoscyamine (Hyoscyamine Sulf 0.125 Mg Tab.Subl) 0.25 mg PO Q4HR [facility] Stop: 04/24/25 13:59 Last Admin: 03/25/25 14:16 Dose: 0.25 mg Metronidazole (Flagyl 500 Mg Iv) 500 mg in 100 mls @ 200 mls/hr IV Q8HR [facility] Stop: 04/01/25 11:53 Last Infusion: 03/25/25 13:10 Dose: Infused Ciprofloxacin/Dextrose (Cipro Ivpb) 400 mg in 200 mls @ 200 mls/hr IV BID [facility] Stop: 04/01/25 11:59 Last Infusion: 03/25/25 13:40 Dose: Infused Lactobacillus Rhamnosus (Lactobacillus Rhamnosus 1 Cap) 1 cap PO BID [facility] Stop: 04/24/25 12:14 Last Admin: 03/25/25 13:03 Dose: 1 cap Morphine Sulfate (Morphine Sulf Inj 4 Mg/Ml Vial) 2 mg IVP Q4HR PRN PRN Reason: pain 7-10 Stop: 03/30/25 12:02 Ondansetron HCl (Ondansetron Inj 2 Mg/Ml Inj 2 Ml) 4 mg IVP Q6H PRN; Protocol PRN Reason: NAUSEA OR VOMITING Stop: 04/24/25 11:51 Pantoprazole Sodium (Pantoprazole Inj 40 Mg Vial) 40 mg IVP QDAY [facility] Stop: 04/24/25 12:14 Last Admin: 03/25/25 12:40 Dose: 40 mg Discontinued Medications Acetaminophen (Acetaminophen 325 Mg Tablet) 650 mg PO Q6H PRN PRN Reason: PAIN OR FEVER > 100.4 Stop: 04/24/25 11:51 Enoxaparin Sodium (Enoxaparin Sod Inj 40 Mg/0.4 Ml Syringe) 40 mg SC QDAY [facility] Stop: 04/08/25 11:59 Assessment & Plan Plan 49-year-old woman with prior diverticulitis, now with recurrent acute diverticulitis of descending colon (uncomplicated by abscess or obstruction), with incidental finding of periaortic lymphadenopathy and bladder wall thickening. Currently clinically stable on IV antibiotics. #Acute diverticulitis #Periaortic lymphadenopathy #Urinary bladder wall thickening #Leukocytosis Plan: * Continue IV ciprofloxacin 400 mg BID + metronidazole 500 mg IV q8h (start 03/25- ). * Advance diet as tolerated per clinical course. IV fluids as needed. * Trend CBC, BMP. Monitor for fevers, abdominal worsening, sepsis.. * For lymphadenopathy: outpatient follow-up with CT chest/abdomen/pelvis with IV contrast for further evaluation once acute episode resolves. * Pain and symptom management per primary team. ----- Plan discussed with attending physician Dr. Ray Curry MD PGY-1 Internal Medicine Attending Provider Attestation/Addendum Patient personally examined Personally reviewed imaging studies and laboratory data Case also reviewed with the internal medicine resident Treatment plans continue IV ciprofloxacin and metronidazole No indication for any surgical intervention at the moment Outpatient follow-up if necessary Will follow the patient Thank you very much for the opportunity to participate in the care of this patient
[2025-03-25 15:05] VITALS: BMI 27.2
[2025-03-25] MEDS: ACETAMINOPHEN 500 MG TABLET 1000 MG PO (15:16)
[2025-03-25 15:25] VITALS: BP 112/68; PULSE 87; RESP 16; TEMP 36.5; O2SAT 92
[2025-03-25 20:00] VITALS: BP 100/62; PULSE 75; RESP 16; TEMP 36.6; O2SAT 98
--- NOTE | 2025-03-25 22:40 | PC.NURSE ---
Dr. Bell into see pt
[2025-03-26] VITALS: BP 104/60; PULSE 77; RESP 18; TEMP 36.6; O2SAT 97
[2025-03-26] MEDS: HYOSCYAMINE SULF 0.125 MG TAB.SUBL 0.25 MG PO ×2 (03:06→05:33)
[2025-03-26 04:00] VITALS: BP 98/65; PULSE 84; RESP 16; TEMP 36.7; O2SAT 97
[2025-03-26] MEDS: metroNIDAZOLE/NS 500 MG IVPB 500 MG/100 ML BAG 200 MG IV (05:33)
[2025-03-26] MEDS: ACETAMINOPHEN 500 MG TABLET 1000 MG PO (05:39)
[2025-03-26 05:45] LABS: Basophils # (Auto) 0.0 Thou/mm3 (0.0-0.2); Basophils % (Auto) 1 % (0-2.5); Eosinophils # (Auto) 0.2 Thou/mm3 (0.0-0.5); Eosinophils % (Auto) 2 % (0-10); Hematocrit 37.6 % (36.0-46.0); Hemoglobin 12.5 g/dL (12.0-16.0); Immature Granulocytes Auto 0.05 Thou/mm3 (0.00-0.00); Lymphocytes # (Auto) 1.4 Thou/mm3 (1.0-4.8); Lymphocytes % (Auto) 16 % (10-50); Mean Corpuscular HGB Conc 33.2 g/dl (31.0-37.0); Mean Corpuscular Hemoglobin 29.2 pg (25.0-35.0); Mean Corpuscular Volume 88 fL (80-100); Monocytes # (Auto) 0.7 Thou/mm3 (0.0-0.8); Monocytes % (Auto) 8 % (0-12); Neutrophils # (Auto) 6.4 Thou/mm3 (1.8-7.7); Neutrophils % (Auto) 73 % (37-80); Nucleated Red Blood Cell # 0.00 Thou/mm3 (0.00-0.00); Nucleated Red Blood Cell % 0 /100 WBC (0); Platelet Count 232 Thou/mm3 (140-440); RDW Standard Deviation 41.4 fL (36.4-46.3); Red Blood Count 4.28 Miln/mm3 (4.00-5.20); White Blood Count 8.7 Thou/mm3 (3.6-11.0)
[2025-03-26 06:04] LABS: Anion Gap 10 (7-16); BUN/Creatinine Ratio 10 Ratio (12-20); Blood Urea Nitrogen 6 mg/dL (9-23); Calcium 9.0 mg/dL (8.3-10.6); Carbon Dioxide 29.9 mMol/L (20.0-31.0); Cardiac Risk Estimate 2.4 RATIO (3.7-5.6); Chloride 101 mMol/L (98-107); Cholesterol 133 mg/dL (132-200); Creatinine (Component) 0.6 mg/dL (0.6-1.3); Estimated Creatinine Clearance 88.3 mL/min (>60); Glucose 124 mg/dL (74-106); HDL Cholesterol 55 mg/dL (40-60); LDL Cholesterol,Calculated 61 mg/dL (0-130); Magnesium 2.0 mg/dL (1.6-2.6); Osmolality,Calculated 279 (275-295); Phosphorous 2.5 mg/dL (2.4-5.1); Potassium 3.1 mMol/L (3.4-5.1); Sodium 141 mMol/L (136-145); Thyroid Stimulating Hormone 1.95 uIU/mL (0.55-4.78); Triglycerides 86 mg/dL (30-150); eGFR > 60 See Note
[2025-03-26 08:00] VITALS: BP 96/60; PULSE 82; RESP 16; TEMP 36.5; O2SAT 94
[2025-03-26] MEDS: POTASSIUM CHL 10 mEq IVPB 10 MEQ/100 ML BAG 100 MEQ IV (08:13)
[2025-03-26] MEDS: CIPROFLOXACIN/D5w 400 MG IVPB 400 MG/200 ML BAG 200 MG IV (08:14)
[2025-03-26] MEDS: LACTOBACILLUS RHAMNOSUS 1 CAP PO (08:14)
[2025-03-26] MEDS: POTASSIUM CHLORIDE 10% 20 MEQ/15 ML UDC 40 MEQ PO (09:52)
[2025-03-26] MEDS: SODIUM CHLORIDE 0.9% 250 ML 250 ML 999 ML IV (09:56)
--- NOTE | 2025-03-26 11:48 | ESDS_ITS ---
<Statement entered by Jose Alfredo Pereira MD - 04/07/25 09:06> I reviewed above note and agree with findings and plans. I have also personally examined the patient with medicine team and went over assessment and plan with medical team including analysis internship and resident physician. <Statement entered by Gordon Katz MD - 03/26/25 13:46> Note reviewed and agree with care plan as documented. Please refer to the note below for further details. Plan discussed with attending physician Dr. Kelli Katz MD PGY-2 Internal Medicine Planned Discharge Date 03/26/25 DS: Providers Provider Date of admission: 03/25/25 11:52 Primary care physician: Edson Dowd MD Admitting Provider: Jose Alfredo Pereira MD Attending Provider on Admission: Jose Alfredo Pereira MD Consults: 03/25/25 11:54 Consult to Gastroenterology Stat Comment: Consulting Provider: Jackie Bell Attending Provider on DC: Jose Alfredo Pereira MD Discharging Provider: Odin Gilbert DO DS: Diagnosis Discharge Diagnosis (1) Diverticulitis: Status: Acute Problem List Completed Was Problem List Reviewed/Reconciled?: Yes Hospital Course Hospital Course Hospital course: Hospital Course: 49-year-old female with no past medical history presented to the ED on 03/25/2025 after a day of intense left lower quadrant pain. It is not radiating. The patient took some ibuprofen which helped a little but she was unable to turn over in bed prompting her to visit the emergency room. CT abdomen pelvis showed acute diverticulitis in the descending colon distally with no peridiverticular abscess. She was admitted by the hospital team for acute diverticulitis. During her hospital stay the patient was treated with IV ciprofloxacin and metronidazole. The patient's pain and mobility was remarkably improved on the day after admission. She will be discharged on oral ciprofloxacin and metronidazole to take for 14 days. Problem List: #Acute diverticulitis #Leukocytosis #Fever #Periaortic lymphadenopathy #Bladder wall thickening Discharge Instructions: ? Continue taking all other home medications as prescribed ? Follow-up with PCP within 1-2 weeks of discharge ? Take ciprofloxacin and metronidazole for a total of 14 days - You will need a colonoscopy 6-8 weeks from now. Please follow up with Dr Bell (gastroenterology). ? If you do not have a PCP, you can follow-up at the [facility] (you can call [phone] to make an appointment) ? Return to ED if symptoms worsen or recur The patient was seen and discussed with my attending physician Dr. Kelli Bradford my senior resident Dr. Sterling BEAVER PGY-2. Odin Gilbert DO PGY-1 Time Spent with Patient Time attestation: Total time spent providing and/or coordinating discharge services: More than 50% Time spent: Greater than 30 minutes Exam Vital Signs Temp Pulse Resp BP Pulse Ox O2 Del Method 97.7 F 82 16 96/60 94 L Room Air 03/26/25 08:00 03/26/25 08:00 03/26/25 08:00 03/26/25 08:00 03/26/25 08:00 03/26/25 08:00 Narrative Exam General: Awake and in no acute distress. Conversational and non-toxic appearing. Neurologic: GCS 15. Alert and oriented x3, no gross neurological deficit, and patient able to move all 4 extremities. HEENT: Normocephalic, atraumatic, mucous membranes moist. Pupils reactive to light. Heart: Regular rate and rhythm, normal S1 and S2, no murmurs. Lungs: Clear to auscultation bilaterally with no wheezing or crackles. Abdomen: Tender to superficial palpation over the left lower quadrant. Extremities: No edema. 2+ radial and dorsalis pedis pulses bilaterally. Skin: Warm. Dry. No rash or ecchymoses. Discharge Plan Plan Patient Disposition: HOME (Self Care) Patient condition on transfer: Stable Care Plan Goals: ? Continue taking all other home medications as prescribed ? Follow-up with PCP within 1-2 weeks of discharge ? Take ciprofloxacin and metronidazole for a total of 14 days - You will need a colonoscopy 6-8 weeks from now. Please follow up with Dr Bell (gastroenterology). ? If you do not have a PCP, you can follow-up at the [facility] (you can call [phone] to make an appointment) ? Return to ED if symptoms worsen or recur Prescriptions/Referrals Prescriptions/Med Rec: New ciprofloxacin HCl 500 mg tablet 500 mg PO Q12H 14 Days Qty: 28 0RF metronidazole 500 mg tablet 500 mg PO Q8H 14 Days Qty: 42 0RF hyoscyamine sulfate 0.125 mg tablet, sublingual 0.125 mg PO QID PRN (Reason: pain) 7 Days Qty: 10 0RF Referrals: Nile (MAYLIN),MD Edson [Primary Care Provider] Patient/Caregiver Discharge Instructions Discharge Activity: return to work once clear Education Materials: Anatomy of the Digestive System, Discharge Instructions for ..., ED Diverticulitis Print Language: Grenadian Stand Alone Forms: Danae Award Info., Patient Portal Info Letter, Work/Release Restrictions Discharge Order Discharge Orders: Discharge (Routine); Ordered 03/26/25 Ordered By: Gordon Katz Quality Discharge Quality Measures none
[2025-03-26 12:00] VITALS: BP 117/67; PULSE 67; RESP 16; TEMP 36.4; O2SAT 96
== END 2025-03-26 12:36 | disposition home or self-care (01) | DRG 244 ==
LOC: SERX 12:17 → SERHOLD 12:21 → S3SX 14:54
PROVIDERS: Nurse Practitioner Family; Admitting Provider Internal Medicine; Emergency Provider Emergency Medicine; PCP Family Medicine; Visit Provider Internal Medicine
DX: K57.32 Diverticulitis of large intestine without perforation or abscess without bleeding (principal); R59.1 Generalized enlarged lymph nodes
CPT/HCPCS: 36415; 74176; 80048; 80053; 80061; 81001; 81025; 83690; 83735; 84100; 84443; 85025; 87040; 87086; 96365; 96375; 99284; J0744; J2470; J3480; J3490; J7050; A9270; J1836